=== PATIENT | female | born 1985 | race Caucasian/White ===

== ENCOUNTER → 2023-12-19 11:28 | Outpatient (REF) | payer OTHER, SELFPAY | LOC: RAD 11:28 | PROVIDERS: ATTENDING PHYSICIAN Family Medicine | DX: R06.02 Shortness of breath (principal) | CPT/HCPCS: 71046 ==

== ENCOUNTER → 2025-06-22 14:15 | Outpatient (REF) | payer BC, SELFPAY | LOC: PNTC 14:15 | PROVIDERS: ATTENDING PHYSICIAN Obstetrics & Gynecology | DX: O09.523 Supervision of elderly multigravida, third trimester (principal) | CPT/HCPCS: 59025; 76815 ==

== ENCOUNTER → 2025-06-29 11:21 | Outpatient (REF) | payer BC, SELFPAY | LOC: PNTC 11:21 | PROVIDERS: ATTENDING PHYSICIAN Obstetrics & Gynecology | DX: O09.523 Supervision of elderly multigravida, third trimester (principal) | CPT/HCPCS: 59025; 76816 ==

== ENCOUNTER → 2025-07-06 14:22 | Outpatient (REF) | payer BC, SELFPAY | LOC: PNTC 14:22 | PROVIDERS: ATTENDING PHYSICIAN Obstetrics & Gynecology | DX: O09.523 Supervision of elderly multigravida, third trimester (principal) | CPT/HCPCS: 59025; 76815 ==

== ENCOUNTER → 2025-07-13 14:00 | Outpatient (REF) | payer BC, SELFPAY | LOC: PNTC 14:00 | PROVIDERS: ATTENDING PHYSICIAN Obstetrics & Gynecology | DX: O09.523 Supervision of elderly multigravida, third trimester (principal) | CPT/HCPCS: 59025; 76815 ==

== ENCOUNTER → 2025-07-20 13:50 | Outpatient (REF) | payer BC, SELFPAY | LOC: PNTC 13:50 | PROVIDERS: ATTENDING PHYSICIAN Obstetrics & Gynecology | DX: O09.523 Supervision of elderly multigravida, third trimester (principal) | CPT/HCPCS: 59025; 76815 ==

== ENCOUNTER 2025-07-27 19:24 | Inpatient (IN) | payer BC, SELFPAY ==
[2025-07-27 19:49] VITALS: BP 117/70; BMI 33.3
[2025-07-27 19:55] LABS: Hematocrit 35.9 % (37.0-47.0); Hemoglobin 12.7 g/dL (12.0-16.0); Mean Corp Hgb Conc. 35.4 g/dL (33.0-37.0); Mean Corpuscular Volume 96.2 fL (81.0-99.0); Nucleated Red Blood Cells % 0 %; Platelet Count 178 10^3/uL (130-400); Red Cell Dist. Width 12.4 % (11.5-14.5)
[2025-07-27] MEDS: CYTOTEC 25 MICROGRAM VAG (20:26)
[2025-07-28] MEDS: CYTOTEC 50 MICROGRAM PO (00:31)
[2025-07-28] MEDS: CYTOTEC PO (04:20)
[2025-07-28] MEDS: LR 1000 IV ×2 (05:20→06:24)
[2025-07-28] MEDS: FENTANYL/BUPIVACAINE 100 EPIDURAL (05:54)
[2025-07-28] MEDS: SUBLIMAZE 100 MCG EPIDURAL (05:54)
[2025-07-28] MEDS: PITOCIN 30 UNITS/NSS 500 ML IV (06:32)
[2025-07-28] MEDS: COLACE 100 MG PO (20:09)
[2025-07-28] MEDS: PRENATAL PLUS 1 TABLET PO (22:45)
[2025-07-29] MEDS: MOTRIN 600 MG PO ×2 (00:33→08:39)
[2025-07-29 06:25] LABS: Hematocrit 33.1 % (37.0-47.0); Hemoglobin 11.7 g/dL (12.0-16.0)
[2025-07-29] MEDS: COLACE 100 MG PO ×2 (08:39→21:15)
[2025-07-29 16:34] LABS: Syphilis/T. pallidum Ab Reflex Negative (Negative)
[2025-07-29] MEDS: PRENATAL PLUS 1 TABLET PO (21:15)
[2025-07-30] MEDS: COLACE 100 MG PO (08:22)
== END 2025-07-30 13:58 | disposition home or self-care (01) | DRG 807 ==
LOC: LDRP 19:24
PROVIDERS: Obstetrics & Gynecology; ADMITTING PHYSICIAN Student in an Organized Health Care Education/Training Program
PROC: 3E0P7VZ Introduction of Hormone into Female Reproductive, Via Natural or Artificial Opening (ICD-10-PCS; 2025-07-27)
PROC: 3E033VJ Introduction of Other Hormone into Peripheral Vein, Percutaneous Approach (ICD-10-PCS; 2025-07-28)
PROC: 10E0XZZ Delivery of Products of Conception, External Approach (ICD-10-PCS; 2025-07-28)
PROC: 0KQM0ZZ Repair Perineum Muscle, Open Approach (ICD-10-PCS; 2025-07-28)
DX: O70.1 Second degree perineal laceration during delivery (principal); Z37.0 Single live birth; Z3A.39 39 weeks gestation of pregnancy
CPT/HCPCS: 36415; 59025; 76815; 85014; 85018; 85025; 86780; 86850; 86900; 86901